=== PATIENT | male | born 1960 | race Caucasian/White ===

== ENCOUNTER 2021-03-27 08:04 | Day surgery (SDC) | payer OTHER ==
[2021-03-25 15:13] VITALS: BMI 25.7
[2021-03-27] MEDS ORDERED: PROPOFOL 20 ML ONE ×2 (09:05)
[2021-03-27 09:42] VITALS: PULSE 80; TEMP 97.1
[2021-03-27 09:43] VITALS: BP 130/82
== END 2021-03-27 10:00 | disposition home or self-care (01) ==
LOC: FASU-ENDO 08:04
PROVIDERS: ATTEND Internal Medicine Gastroenterology
PROC: 0DJD8ZZ Inspection of Lower Intestinal Tract, Via Natural or Artificial Opening Endoscopic (ICD-10-PCS; principal; 2021-03-27 09:12)
DX: Z12.11 Encounter for screening for malignant neoplasm of colon (principal); K57.30 Diverticulosis of large intestine without perforation or abscess without bleeding; Z80.0 Family history of malignant neoplasm of digestive organs